=== PATIENT | male | born 1945 | race Caucasian/White ===

== ENCOUNTER → 2016-09-25 | Outpatient (CLI) | payer MEDICARE, OTHER ==
[~2016-09-25] MED LIST: ALLOPURINOL PO; AMLODIPINE PO; FUROSEMIDE PO; GABAPENTIN PO; LISINOPRIL PO; LUNESTA PO; METH5TAB2; MORPHINE PO; [UNRECOGNIZED DRUG - REMARK] PO
[2016-09-25 15:22] LABS: ASPARTATE AMINO TRANSFERASE 24 U/L (15-37); BLOOD UREA NITROGEN 21 mg/dL (7-18)
== END | disposition home or self-care (01) ==
LOC: STAR 13:54 → MERGE 13:54
PROVIDERS: ATTEND Neurological Surgery
DX: Z01.818 Encounter for other preprocedural examination (principal); M48.06 Spinal stenosis, lumbar region; R79.1 Abnormal coagulation profile
CPT/HCPCS: 36415; 71020; 80053; 85025; 85610; 85730; 93005

== ENCOUNTER 2016-10-09 09:53 | Inpatient (IN) | payer MEDICARE, OTHER ==
[~2016-10-09] VITALS: Ht 180.3 cm; Wt 117.8 kg
[2016-10-09] MEDS ORDERED: LACTATED RINGERS 1,000 ML IV SCH (10:26)
[2016-10-09 10:53] VITALS: BP 134/87
[2016-10-09] MEDS ORDERED: ASPI-496 PO (11:06)
[2016-10-09] MEDS ORDERED: FURO20TA3 PO (11:06)
[2016-10-09] MEDS ORDERED: ALLO300T PO (11:06)
[2016-10-09] MEDS ORDERED: DOCU240C53 PO (11:06)
[2016-10-09] MEDS ORDERED: TERA2CAP3 PO (11:06)
[2016-10-09] MEDS ORDERED: POLY17PO5 PO (11:06)
[2016-10-09] MEDS ORDERED: OXYC-223 PO (11:06)
[2016-10-09] MEDS ORDERED: GABA400C PO (11:06)
[2016-10-09] MEDS ORDERED: AMLO5TAB2 PO (11:06)
[2016-10-09] MEDS ORDERED: POTA20TA6 PO (11:06)
[2016-10-09] MEDS ORDERED: LISI-170 PO (11:06)
[2016-10-09] MEDS ORDERED: MORPHINE ER PO (11:06)
[2016-10-09] MEDS ORDERED: ESZO3TAB9 PO (11:06)
[2016-10-09] MEDS ORDERED: FENTANYL PF 250 MCG/5ML ONE (11:19)
[2016-10-09] MEDS ORDERED: MIDAZOLAM 1 MG/ML, 2ML ONE (11:19)
[2016-10-09] MEDS ORDERED: GLYCOPYRROLATE 0.2MG/1ML ONE (12:28)
[2016-10-09] MEDS ORDERED: ONDANSETRON 2MG/ML, 2ML ONE (12:28)
[2016-10-09] MEDS ORDERED: ROCURONIUM 10 MG/ML ONE (12:28)
[2016-10-09] MEDS ORDERED: SUCCINYLCHOLINE 20 MG/ML, 10ML ONE (12:28)
[2016-10-09] MEDS ORDERED: NEOSTIGMINE 1 MG/ML, 10ML ONE (12:28)
[2016-10-09] MEDS ORDERED: PROPOFOL 10 MG/ML, 20ML ONE (12:28)
[2016-10-09] MEDS ORDERED: DEXAMETHASONE 4 MG/ML, 1ML ONE (12:28)
[2016-10-09] MEDS ORDERED: CEFAZOLIN 1,000 MG ONE (12:28)
[2016-10-09] MEDS ORDERED: BACITRACIN 50,000 UNIT IRRIG ONE (13:18)
[2016-10-09] MEDS ORDERED: THROMBIN 5,000 UNIT VIAL TP ONE (13:19)
[2016-10-09] MEDS ORDERED: BUPIVACAINE/PF-EPI 0.5% 1:200K INFIL ONE (13:19)
[2016-10-09] MEDS ORDERED: ONDANSETRON 2MG/ML, 2ML IVPush PRN (13:30)
[2016-10-09] MEDS ORDERED: hydrALAzine 20 MG/ML, 1ML IV PRN (13:30)
[2016-10-09] MEDS ORDERED: METOPROLOL 1 MG/ML, 5ML IV PRN (13:30)
[2016-10-09] MEDS ORDERED: EPHEDRINE 50 MG/ML, 1ML IVPush PRN (13:30)
[2016-10-09] MEDS ORDERED: MEPERIDINE/PF 25MG/0.5ML IVPush PRN (13:30)
[2016-10-09] MEDS ORDERED: MIDAZOLAM 1 MG/ML, 2ML IV PRN (13:30)
[2016-10-09] MEDS ORDERED: ACETAMINOPHEN 325 MG TABLET PO PRN (13:30)
[2016-10-09] MEDS ORDERED: ALBUTEROL SULFATE 2.5 MG/3 ML NPPB PRN (13:30)
[2016-10-09] MEDS ORDERED: OXYcodone 5 MG/5 ML ORAL.SOL UDC PO PRN (13:30)
[2016-10-09] MEDS ORDERED: PROMETHAZINE 25 MG/ML, 1ML IV PRN (13:30)
[2016-10-09] MEDS ORDERED: LABETALOL 5MG/ML, 20ML IV PRN (13:30)
[2016-10-09] MEDS ORDERED: ACETAMINOPHEN 325 MG TABLET ONE (14:31)
[2016-10-09] MEDS ORDERED: FENTANYL PF 100 MCG/2ML ONE (14:31)
[2016-10-09] MEDS ORDERED: ACETAMINOPHEN 650 MG/20.3 ML UDC ONE (14:31)
[2016-10-09] MEDS ORDERED: OXYcodone 5 MG/5 ML ORAL.SOL UDC ONE (14:32)
[2016-10-09] MEDS: FENTANYL PF 100 MCG/2ML IV PRN ×2 (14:35→15:04)
[2016-10-09] MEDS ORDERED: HYDROmorphone 2 MG/ML, 1ML ONE (14:47)
[2016-10-09] MEDS: HYDROmorphone 1 MG/ML, 1ML IV PRN ×2 (14:50→15:00)
[2016-10-09] MEDS ORDERED: CEFAZOLIN PMX 1GM/50ML 50 ML IVPB SCH ×2 (16:30)
[2016-10-09] MEDS ORDERED: PROMETHAZINE 25 MG/ML, 1ML IM PRN (16:30)
[2016-10-09] MEDS ORDERED: DIPHENHYDRAMINE 50 MG/ML, 1ML IVPush PRN (16:30)
[2016-10-09] MEDS ORDERED: DIPHENHYDRAMINE 50 MG/ML, 1ML IM PRN (16:30)
[2016-10-09] MEDS ORDERED: MAGNESIUM HYDROXIDE 8%, 30ML UDC PO PRN (16:30)
[2016-10-09] MEDS ORDERED: HYDROmorphone 2MG TABLET PO PRN (16:30)
[2016-10-09] MEDS ORDERED: ONDANSETRON 2MG/ML, 2ML IV PRN (16:30)
[2016-10-09] MEDS ORDERED: DIPHENHYDRAMINE 50 MG CAPSULE PO PRN (16:30)
[2016-10-09] MEDS ORDERED: BISACODYL 10 MG SUPP PR PRN (16:30)
[2016-10-09] MEDS ORDERED: ZOLPIDEM 5MG TABLET PO PRN (21:00)
[2016-10-09] MEDS: LUNESTA 3 MG PO SCH (21:00)
[2016-10-09] MEDS: POLYETHYLENE GLYCOL 17 GM PACKET PO SCH (21:26)
[2016-10-09] MEDS: ALLOPURINOL 300 MG TABLET PO SCH (21:26)
[2016-10-09] MEDS: DOCUSATE CALCIUM 240 MG CAPSULE PO SCH (21:26)
[2016-10-09] MEDS: GABAPENTIN 400 MG CAPSULE PO SCH (21:26)
[2016-10-09] MEDS: TERAZOSIN 2MG CAPSULE PO SCH (21:26)
[2016-10-09] MEDS: NS + 20MEQ KCL 1,000 ML IV SCH (22:00)
[2016-10-09] MEDS: CEFAZOLIN PMX 1GM/50ML 50 ML IVPB SCH (22:22)
[2016-10-10 02:27] VITALS: BP 96/53
[2016-10-10 04:20] VITALS: BP 129/86
[2016-10-10] MEDS: CEFAZOLIN PMX 1GM/50ML 50 ML IVPB SCH (05:58)
[2016-10-10 06:36] VITALS: BP 133/74
[2016-10-10] MEDS ORDERED: POLYETHYLENE GLYCOL 17 GM PACKET PO SCH ×2 (09:00)
[2016-10-10] MEDS: FUROSEMIDE 20 MG TABLET PO SCH (09:19)
[2016-10-10] MEDS: POTASSIUM CHLORIDE 20 MEQ TAB.ER.PRT PO SCH (09:19)
[2016-10-10] MEDS: GABAPENTIN 400 MG CAPSULE PO SCH ×2 (09:20→22:40)
[2016-10-10] MEDS: DOCUSATE CALCIUM 240 MG CAPSULE PO SCH ×2 (09:20→22:40)
[2016-10-10] MEDS: LISINOPRIL 20 MG TABLET PO SCH (09:21)
[2016-10-10] MEDS: AMLODIPINE 5 MG TABLET PO SCH (09:21)
[2016-10-10] MEDS: POLYETHYLENE GLYCOL 17 GM PACKET PO SCH (09:22)
[2016-10-10] MEDS: METHOCARBAMOL 750 MG TABLET PO PRN (09:24)
[2016-10-10] MEDS: NS + 20MEQ KCL 1,000 ML IV SCH (12:30)
[2016-10-10 14:41] VITALS: BP 132/91
[2016-10-10] MEDS: HYDROmorphone 2 MG/ML, 1ML IM PRN (14:43)
[2016-10-10 20:00] VITALS: BP 135/74
[2016-10-10] MEDS: LUNESTA 3 MG PO SCH (21:00)
[2016-10-10] MEDS: ALLOPURINOL 300 MG TABLET PO SCH (21:00)
[2016-10-10] MEDS: TERAZOSIN 2MG CAPSULE PO SCH (22:40)
[2016-10-11] MEDS: OXYcodone/APAP 5/325MG TABLET PO PRN ×3 (00:35→16:16)
[2016-10-11] MEDS: METHOCARBAMOL 750 MG TABLET PO PRN ×3 (00:35→21:02)
[2016-10-11 02:00] VITALS: BP 131/74
[2016-10-11] MEDS: HYDROmorphone 2 MG/ML, 1ML IM PRN (02:41)
[2016-10-11 07:10] VITALS: BP 139/57
[2016-10-11 08:05] VITALS: BP 134/72
[2016-10-11] MEDS: NS + 20MEQ KCL 1,000 ML IV SCH ×2 (08:30→19:23)
[2016-10-11] MEDS: POTASSIUM CHLORIDE 20 MEQ TAB.ER.PRT PO SCH (08:44)
[2016-10-11] MEDS: LISINOPRIL 20 MG TABLET PO SCH (08:45)
[2016-10-11] MEDS: DOCUSATE CALCIUM 240 MG CAPSULE PO SCH ×2 (08:45→21:00)
[2016-10-11] MEDS: AMLODIPINE 5 MG TABLET PO SCH (08:45)
[2016-10-11] MEDS: FUROSEMIDE 20 MG TABLET PO SCH (08:45)
[2016-10-11] MEDS: GABAPENTIN 400 MG CAPSULE PO SCH ×2 (08:45→21:00)
[2016-10-11] MEDS: POLYETHYLENE GLYCOL 17 GM PACKET PO SCH (08:46)
[2016-10-11 13:35] VITALS: BP 126/78
[2016-10-11] MEDS ORDERED: DEXTROSE 4 GM TAB.CHEW PO PRN (19:00)
[2016-10-11] MEDS ORDERED: DEXTROSE 50%, 50ML SYRINGE IVPush PRN (19:00)
[2016-10-11] MEDS ORDERED: GLUCAGON 1 MG IM PRN (19:00)
[2016-10-11 20:00] VITALS: BP 120/74
[2016-10-11] MEDS: DEXAMETHASONE 4 MG/ML, 1ML IVPush SCH (20:59)
[2016-10-11] MEDS: TERAZOSIN 2MG CAPSULE PO SCH (21:00)
[2016-10-11] MEDS: ALLOPURINOL 300 MG TABLET PO SCH (21:00)
[2016-10-11] MEDS ORDERED: SODIUM CHLORIDE FLUSH 10ML SYR IVF SCH (21:00)
[2016-10-11] MEDS: SODIUM CHLORIDE FLUSH 10ML SYR IVF SCH (21:00)
[2016-10-11] MEDS: FAMOTIDINE 20 MG TABLET PO SCH (21:00)
[2016-10-11] MEDS: LUNESTA 3 MG PO SCH (21:02)
[2016-10-11] MEDS: INSULIN ASPART 100 UNITS/ML, PEN SQ-INSULIN SCH (21:55)
[2016-10-12 02:30] VITALS: BP 125/77
[2016-10-12] MEDS: DEXAMETHASONE 4 MG/ML, 1ML IVPush SCH ×2 (02:33→07:44)
[2016-10-12 07:27] VITALS: BP 131/64
[2016-10-12] MEDS: POTASSIUM CHLORIDE 20 MEQ TAB.ER.PRT PO SCH (07:44)
[2016-10-12] MEDS: INSULIN ASPART 100 UNITS/ML, PEN SQ-INSULIN SCH (07:44)
[2016-10-12] MEDS: LISINOPRIL 20 MG TABLET PO SCH (08:56)
[2016-10-12] MEDS: DOCUSATE CALCIUM 240 MG CAPSULE PO SCH (08:56)
[2016-10-12] MEDS: FUROSEMIDE 20 MG TABLET PO SCH (08:56)
[2016-10-12] MEDS: AMLODIPINE 5 MG TABLET PO SCH (08:56)
[2016-10-12] MEDS: GABAPENTIN 400 MG CAPSULE PO SCH (08:57)
[2016-10-12] MEDS: FAMOTIDINE 20 MG TABLET PO SCH (08:57)
[2016-10-12] MEDS: SODIUM CHLORIDE FLUSH 10ML SYR IVF SCH (08:58)
[2016-10-12] MEDS ORDERED: METH750T87 PO (09:36)
[2016-10-12] MEDS: POLYETHYLENE GLYCOL 17 GM PACKET PO SCH (10:00)
== END 2016-10-12 11:39 | disposition home or self-care (01) | DRG 520 ==
LOC: OUT 09:53 → 4NOR 16:07 → OUT 16:43 → DCLOUNGE 10-12 10:27
PROVIDERS: ADMIT Neurological Surgery; ATTEND Neurological Surgery
PROC: 0SB20ZZ Excision of Lumbar Vertebral Disc, Open Approach (ICD-10-PCS; 2016-10-09)
PROC: 01NB0ZZ Release Lumbar Nerve, Open Approach (ICD-10-PCS; principal; 2016-10-09 13:00)
DX: M48.06 Spinal stenosis, lumbar region (principal); I10 Essential (primary) hypertension; E11.9 Type 2 diabetes mellitus without complications; E66.01 Morbid (severe) obesity due to excess calories; Z68.36 Body mass index [BMI] 36.0-36.9, adult; Z79.82 Long term (current) use of aspirin; M81.0 Age-related osteoporosis without current pathological fracture; E78.00 Pure hypercholesterolemia, unspecified; Z82.49 Family history of ischemic heart disease and other diseases of the circulatory system; Z80.9 Family history of malignant neoplasm, unspecified; Z82.61 Family history of arthritis; M47.26 Other spondylosis with radiculopathy, lumbar region
CPT/HCPCS: 72100; 82962; J0690; J1100; J1170; J1815; J2250; J2405; J2704; J2710; J3010; J3490; J0330; J7120

== ENCOUNTER 2016-10-16 21:03 | Observation (INO) | payer MEDICARE, OTHER ==
[~2016-10-16] VITALS: Ht 180.3 cm; Wt 116.6 kg
[~2016-10-16 21:03] MED LIST changes: +ALLO300T PO; +AMLO5TAB2 PO; +ASPI-496 PO; +DOCU240C53 PO; +ESZO3TAB9 PO; +FURO20TA3 PO; +GABA400C PO; +LISI-170 PO; +METH750T87 PO; +MORPHINE ER PO; +OXYC-223 PO; +POLY17PO5 PO; +POTA20TA6 PO; +TERA2CAP3 PO
[2016-10-16] MEDS ORDERED: SODIUM CHLORIDE FLUSH 10ML SYR IVF ONE (23:00)
[2016-10-16 23:17] LABS: BLOOD UREA NITROGEN 27 mg/dL (7-18)
[2016-10-16 23:59] LABS: PATH.CAST-FLAG NOT PRESENT; SPERM-FLAG NOT PRESENT; SRC-FLAG NOT PRESENT; XTAL-FLAG NOT PRESENT; YLC-FLAG NOT PRESENT
[2016-10-17 01:13] VITALS: BP 165/98
[2016-10-17 01:14] VITALS: BP 165/98
[2016-10-17] MEDS ORDERED: ACETAMINOPHEN 325 MG TABLET PO PRN (01:30)
[2016-10-17] MEDS ORDERED: ENOXAPARIN 40 MG/0.4 ML SQ SCH (01:30)
[2016-10-17] MEDS ORDERED: ONDANSETRON 2MG/ML, 2ML IVPush PRN (01:30)
[2016-10-17] MEDS ORDERED: DOCUSATE 100 MG CAPSULE PO PRN (01:30)
[2016-10-17] MEDS ORDERED: POLYETHYLENE GLYCOL 17 GM PACKET NG ONE (01:30)
[2016-10-17] MEDS: SODIUM CHLORIDE 0.9% 1,000 ML IV SCH ×3 (02:11→21:16)
[2016-10-17] MEDS ORDERED: OXYcodone/APAP 7.5/325MG TABLET PO ONE (03:00)
[2016-10-17] MEDS: METHOCARBAMOL 750 MG TABLET PO PRN ×2 (05:07→11:53)
[2016-10-17 07:45] VITALS: BP 128/79
[2016-10-17] MEDS: OXYcodone/APAP 7.5/325MG TABLET PO SCH ×2 (09:56→21:00)
[2016-10-17] MEDS: POTASSIUM CHLORIDE 20 MEQ TAB.ER.PRT PO SCH (09:56)
[2016-10-17] MEDS: GABAPENTIN 400 MG CAPSULE PO SCH ×2 (09:56→21:04)
[2016-10-17] MEDS: DOCUSATE CALCIUM 240 MG CAPSULE PO SCH ×2 (09:56→21:05)
[2016-10-17] MEDS: AMLODIPINE 5 MG TABLET PO SCH (09:56)
[2016-10-17] MEDS: LISINOPRIL 20 MG TABLET PO SCH (09:56)
[2016-10-17] MEDS: POLYETHYLENE GLYCOL 17 GM PACKET PO SCH (09:58)
[2016-10-17 14:20] VITALS: BP 129/76
[2016-10-17] MEDS ORDERED: LUNESTA 3 MG HOMEMEDPO SCH (21:00)
[2016-10-17] MEDS ORDERED: TERAZOSIN 2MG CAPSULE PO SCH (21:00)
[2016-10-17] MEDS ORDERED: ZOLPIDEM 5MG TABLET PO SCH (21:00)
[2016-10-17] MEDS ORDERED: ALLOPURINOL 300 MG TABLET PO SCH (21:00)
[2016-10-17 21:12] VITALS: BP 132/78
[2016-10-18] MEDS: METHOCARBAMOL 750 MG TABLET PO PRN ×2 (02:26→08:57)
[2016-10-18 02:29] VITALS: BP 125/81
[2016-10-18 05:30] LABS: BLOOD UREA NITROGEN 20 mg/dL (7-18)
[2016-10-18 08:32] VITALS: BP 133/76
[2016-10-18] MEDS: POLYETHYLENE GLYCOL 17 GM PACKET PO SCH (08:51)
[2016-10-18] MEDS: AMLODIPINE 5 MG TABLET PO SCH (08:51)
[2016-10-18] MEDS: GABAPENTIN 400 MG CAPSULE PO SCH (08:51)
[2016-10-18] MEDS: LISINOPRIL 20 MG TABLET PO SCH (08:51)
[2016-10-18] MEDS: DOCUSATE CALCIUM 240 MG CAPSULE PO SCH (08:52)
[2016-10-18] MEDS: POTASSIUM CHLORIDE 20 MEQ TAB.ER.PRT PO SCH (08:52)
[2016-10-18] MEDS: OXYcodone/APAP 7.5/325MG TABLET PO SCH (09:00)
[2016-10-18] MEDS ORDERED: TAMSULOSIN 0.4 MG CAP.ER.24H PO SCH (09:30)
[2016-10-18] MEDS ORDERED: TAMS-11 PO ×2 (09:49→09:52)
[2016-10-18 13:22] VITALS: BP 120/75
== END 2016-10-18 13:30 | disposition home or self-care (01) ==
LOC: ED 22:51 → EDIP 10-17 00:08 → INTOOBSV 10-17 00:08 → 4NOR 10-17 00:45
PROVIDERS: ADMIT Hospitalist; ATTEND Hospitalist
DX: R33.0 Drug induced retention of urine (principal); N40.1 Benign prostatic hyperplasia with lower urinary tract symptoms; K59.00 Constipation, unspecified; R53.1 Weakness; I10 Essential (primary) hypertension; E66.9 Obesity, unspecified; M10.9 Gout, unspecified; D72.829 Elevated white blood cell count, unspecified; G89.29 Other chronic pain; M54.5 Low back pain; F32.9 Major depressive disorder, single episode, unspecified; G62.9 Polyneuropathy, unspecified
CPT/HCPCS: 36415; 74020; 80048; 81001; 82040; 85014; 85018; 85025; 96360; 96361; 99285; G0378; J7030; J7509

== ENCOUNTER 2016-10-21 22:33 | Emergency (ER) | payer MEDICARE, OTHER ==
[~2016-10-21] VITALS: Ht 180.3 cm; Wt 114.1 kg
[~2016-10-21 22:33] MED LIST changes: +TAMS-11 PO
[2016-10-22 01:02] VITALS: BP 115/63
== END 2016-10-22 01:28 | disposition home or self-care (01) ==
LOC: ED 22:55
DX: N40.1 Benign prostatic hyperplasia with lower urinary tract symptoms (principal); R33.8 Other retention of urine; R10.30 Lower abdominal pain, unspecified; I10 Essential (primary) hypertension
CPT/HCPCS: 81001; 87086; 93005

== ENCOUNTER 2016-10-29 17:39 | Emergency (ER) | payer MEDICARE, OTHER ==
[~2016-10-29] VITALS: Ht 180.3 cm; Wt 117.1 kg
[2016-10-29 20:20] VITALS: BP 124/72
== END 2016-10-29 20:22 | disposition home or self-care (01) ==
LOC: ED 20:09
DX: R33.9 Retention of urine, unspecified (principal); I10 Essential (primary) hypertension; E66.9 Obesity, unspecified; N40.0 Benign prostatic hyperplasia without lower urinary tract symptoms
CPT/HCPCS: 51702

== ENCOUNTER 2016-11-04 02:22 | Emergency (ER) | payer MEDICARE, OTHER ==
[~2016-11-04] VITALS: Ht 180.3 cm; Wt 120.0 kg
[2016-11-04 04:02] VITALS: BP 113/81
== END 2016-11-04 04:05 | disposition home or self-care (01) ==
LOC: ED 02:54
DX: R33.9 Retention of urine, unspecified (principal); E11.9 Type 2 diabetes mellitus without complications; I10 Essential (primary) hypertension
CPT/HCPCS: 51702; 81001; 99284

== ENCOUNTER 2016-11-12 01:28 | Emergency (ER) | payer MEDICARE, OTHER ==
[~2016-11-12] VITALS: Ht 180.3 cm; Wt 118.9 kg
[2016-11-12 01:29] VITALS: BP 143/80
== END 2016-11-12 03:13 | disposition home or self-care (01) ==
LOC: ED 03:00
DX: R31.0 Gross hematuria (principal); R33.9 Retention of urine, unspecified
CPT/HCPCS: 99284

== ENCOUNTER 2016-11-29 12:08 | Inpatient (IN) | payer MEDICARE, OTHER ==
[~2016-11-29] VITALS: Ht 180.3 cm; Wt 118.0 kg
[2016-11-29] MEDS ORDERED: CEFTRIAXONE PMX 1GM/50ML 50 ML IVPB ONE (16:00)
[2016-11-29] MEDS ORDERED: CEFTRIAXONE PMX 1GM/50ML 50 ML ONE (16:10)
[2016-11-29 16:20] LABS: BLOOD UREA NITROGEN 12 mg/dL (7-18)
[2016-11-29] MEDS ORDERED: PHENAZOPYRIDINE 200 MG TABLET ONE (16:49)
[2016-11-29] MEDS ORDERED: PHENAZOPYRIDINE 200 MG TABLET PO ONE (17:00)
[2016-11-29] MEDS ORDERED: SODIUM CHLORIDE FLUSH 10ML SYR IVF PRN (17:00)
[2016-11-29] MEDS ORDERED: hydrALAzine 20 MG/ML, 1ML IVPush PRN (17:30)
[2016-11-29] MEDS ORDERED: ACETAMINOPHEN 325 MG TABLET PO PRN ×2 (17:30→19:30)
[2016-11-29] MEDS ORDERED: OXYcodone IR 5MG TABLET PO PRN (17:30)
[2016-11-29] MEDS: CEFTRIAXONE PMX 1GM/50ML 50 ML IV SCH (17:30)
[2016-11-29] MEDS ORDERED: ONDANSETRON 2MG/ML, 2ML IVPush PRN (17:30)
[2016-11-29] MEDS ORDERED: POLYETHYLENE GLYCOL 17 GM PACKET PO PRN (17:30)
[2016-11-29] MEDS ORDERED: METHOCARBAMOL 750 MG TABLET PO PRN (17:30)
[2016-11-29] MEDS ORDERED: BISACODYL 10 MG SUPP PR PRN ×2 (17:30→19:30)
[2016-11-29] MEDS ORDERED: ENALAPRILAT 1.25 MG/ML, 2ML IVPush PRN ×2 (17:30→18:26)
[2016-11-29] MEDS: morphine SULFATE 10 MG/ML, 1ML IVPush PRN ×2 (18:35→21:28)
[2016-11-29] MEDS: SODIUM CHLORIDE 0.9% 1,000 ML IV SCH (18:37)
[2016-11-29] MEDS: HEPARIN 5,000 UNITS/ML, 1ML SQ SCH (18:44)
[2016-11-29 19:50] VITALS: BP 146/88
[2016-11-29] MEDS ORDERED: ZOLPIDEM 5MG TABLET PO SCH (21:00)
[2016-11-29] MEDS: PHENAZOPYRIDINE 200 MG TABLET PO SCH (21:26)
[2016-11-29] MEDS: GABAPENTIN 400 MG CAPSULE PO SCH (21:26)
[2016-11-29] MEDS: ALLOPURINOL 300 MG TABLET PO SCH (21:26)
[2016-11-29] MEDS: OXYcodone/APAP 7.5/325MG TABLET PO SCH (21:26)
[2016-11-29] MEDS: TERAZOSIN 2MG CAPSULE PO SCH (21:26)
[2016-11-30] MEDS: HEPARIN 5,000 UNITS/ML, 1ML SQ SCH ×3 (01:10→18:18)
[2016-11-30 01:13] VITALS: BP 105/61
[2016-11-30] MEDS: morphine SULFATE 10 MG/ML, 1ML IVPush PRN ×2 (01:16→16:20)
[2016-11-30] MEDS: SODIUM CHLORIDE 0.9% 1,000 ML IV SCH (02:46)
[2016-11-30 05:20] LABS: BLOOD UREA NITROGEN 14 mg/dL (7-18)
[2016-11-30 05:25] LABS: ASPARTATE AMINO TRANSFERASE 12 U/L (15-37)
[2016-11-30] MEDS: CEFTRIAXONE PMX 1GM/50ML 50 ML IV SCH ×2 (05:29→18:19)
[2016-11-30 08:00] VITALS: BP 137/84
[2016-11-30] MEDS: TAMSULOSIN 0.4 MG CAP.ER.24H PO SCH (09:10)
[2016-11-30] MEDS: AMLODIPINE 5 MG TABLET PO SCH (09:11)
[2016-11-30] MEDS: GABAPENTIN 400 MG CAPSULE PO SCH ×2 (09:11→19:58)
[2016-11-30] MEDS: PHENAZOPYRIDINE 200 MG TABLET PO SCH ×3 (09:12→19:58)
[2016-11-30] MEDS: LISINOPRIL 20 MG TABLET PO SCH (09:12)
[2016-11-30] MEDS: SENNA/DOCUSATE TABLET PO SCH (09:13)
[2016-11-30] MEDS: POLYETHYLENE GLYCOL 17 GM PACKET PO PRN (09:20)
[2016-11-30] MEDS: OXYcodone/APAP 7.5/325MG TABLET PO SCH ×2 (11:07→21:12)
[2016-11-30 14:00] VITALS: BP 134/81
[2016-11-30 19:50] VITALS: BP 130/82
[2016-11-30] MEDS: ALLOPURINOL 300 MG TABLET PO SCH (19:58)
[2016-11-30] MEDS: TERAZOSIN 2MG CAPSULE PO SCH (19:59)
[2016-11-30] MEDS ORDERED: ZOLPIDEM 5MG TABLET PO PRN (23:30)
[2016-12-01] MEDS: HEPARIN 5,000 UNITS/ML, 1ML SQ SCH ×2 (01:30→09:30)
[2016-12-01 04:30] VITALS: BP 146/82
[2016-12-01] MEDS: CEFTRIAXONE PMX 1GM/50ML 50 ML IV SCH (04:53)
[2016-12-01 08:00] VITALS: BP 189/72
[2016-12-01] MEDS: SENNA/DOCUSATE TABLET PO SCH (09:35)
[2016-12-01] MEDS: POLYETHYLENE GLYCOL 17 GM PACKET PO PRN (09:35)
[2016-12-01] MEDS: OXYcodone/APAP 7.5/325MG TABLET PO SCH (09:35)
[2016-12-01] MEDS: LISINOPRIL 20 MG TABLET PO SCH (09:36)
[2016-12-01] MEDS: GABAPENTIN 400 MG CAPSULE PO SCH (09:36)
[2016-12-01] MEDS: TAMSULOSIN 0.4 MG CAP.ER.24H PO SCH (09:36)
[2016-12-01] MEDS: AMLODIPINE 5 MG TABLET PO SCH (09:36)
[2016-12-01] MEDS: PHENAZOPYRIDINE 200 MG TABLET PO SCH (09:36)
[2016-12-01] MEDS ORDERED: CEFD300C37 PO (10:35)
== END 2016-12-01 13:45 | disposition home or self-care (01) | DRG 699 ==
LOC: ED 13:38 → EDIP 16:34 → 3NE 18:12
PROVIDERS: ADMIT Hospitalist; ATTEND Hospitalist
PROC: 0T9B70Z Drainage of Bladder with Drainage Device, Via Natural or Artificial Opening (ICD-10-PCS; principal; 2016-11-29)
DX: T83.091A Other mechanical complication of indwelling urethral catheter, initial encounter (principal); N10 Acute pyelonephritis; F32.9 Major depressive disorder, single episode, unspecified; E11.40 Type 2 diabetes mellitus with diabetic neuropathy, unspecified; G89.29 Other chronic pain; I10 Essential (primary) hypertension; M10.9 Gout, unspecified; K59.00 Constipation, unspecified; E66.9 Obesity, unspecified; R33.8 Other retention of urine; N40.1 Benign prostatic hyperplasia with lower urinary tract symptoms; Y73.8 Miscellaneous gastroenterology and urology devices associated with adverse incidents, not elsewhere classified; M48.06 Spinal stenosis, lumbar region; Z79.891 Long term (current) use of opiate analgesic; Z68.36 Body mass index [BMI] 36.0-36.9, adult; Z79.899 Other long term (current) drug therapy; Z83.3 Family history of diabetes mellitus
CPT/HCPCS: 36415; 51702; 80048; 80053; 80061; 81001; 82040; 83036; 83605; 83735; 84439; 84443; 85025; 87040; 87077; 87086; 87186; 96365; J0696; J1644; J2270; J7030

== ENCOUNTER → 2017-01-07 | Outpatient (CLI) | payer MEDICARE, OTHER ==
[~2017-01-07] MED LIST changes: +CEFD300C37 PO; +FENTANYL PF 100 MCG/2ML ONE; +GADOBUTROL 10 MMOL/10 ML PFS ONE; +MIDAZOLAM 1 MG/ML, 5ML ONE; +NALOXONE 1 MG/ML, 2ML ONE
== END | disposition home or self-care (01) ==
LOC: RAD 09:01
PROVIDERS: ATTEND Nurse Practitioner Primary Care
DX: M47.897 Other spondylosis, lumbosacral region (principal); M47.896 Other spondylosis, lumbar region; M48.06 Spinal stenosis, lumbar region; M48.07 Spinal stenosis, lumbosacral region; M54.16 Radiculopathy, lumbar region; M17.0 Bilateral primary osteoarthritis of knee; I10 Essential (primary) hypertension; E78.00 Pure hypercholesterolemia, unspecified; M81.0 Age-related osteoporosis without current pathological fracture; E11.9 Type 2 diabetes mellitus without complications; Z98.890 Other specified postprocedural states
CPT/HCPCS: 72158; 99156; 99157; A9585; J2250; J3010; J2310

== ENCOUNTER 2020-05-01 14:37 | Emergency (ER) | payer MEDICARE, OTHER ==
[~2020-05-01] VITALS: Ht 177.8 cm; Wt 120.3 kg
[~2020-05-01 14:37] MED LIST changes: +AMLO-150 PO; -AMLO5TAB2 PO; +ESZO3TAB28 PO; -ESZO3TAB9 PO; -FENTANYL PF 100 MCG/2ML ONE; -GADOBUTROL 10 MMOL/10 ML PFS ONE; -MIDAZOLAM 1 MG/ML, 5ML ONE; -NALOXONE 1 MG/ML, 2ML ONE; -OXYC-223 PO; +OXYC-306 PO
--- NOTE | 2020-05-01 14:48 | NUR ---
PT ABLE TO SPEAK IN COMPLETE SENTENCES, RAPIDLY, WITHOUT DIFFICULTY. DENIES DYSPNEA, SOB. NO FACIAL DROP, ABLE TO MOVE ALL EXTREMETIES W/OUT DIFFICULTY. PT REPORTS STARTING NEW MED LAST WEDNESDAY. REPORTS FEELING TINGLING IN MOUTH, LIP FEELS FAT, NUMBNESS TO LT SIDE OF MOUTH, DIZZY. STATES HE WAS USING OPIATES REGULARLY FOR CHRONIC PAIN AND WAS SWITCHED TO THE NEW MEDICATION; PT UNABLE TO RECALL EXACT NAME OF MED.
[2020-05-01] MEDS ORDERED: BUPR2TAB SL (14:53)
--- NOTE | 2020-05-01 15:05 | NUR ---
EXTERNAL RX LIST ACCESS FOR CORRECT MEDICATION NAME: BUPRENORPHINE. PROVIDERS WILL BE NOTIFIED.
[2020-05-01] MEDS ORDERED: METO25TA4 PO (15:21)
[2020-05-01] MEDS ORDERED: METH500T7 PO (15:21)
[2020-05-01] MEDS ORDERED: AMIT50TA PO (15:21)
[2020-05-01] MEDS ORDERED: ROSU5TAB12 PO (15:21)
[2020-05-01] MEDS ORDERED: ALOG25TA2 PO (15:21)
[2020-05-01 15:23] LABS: BASOPHILS % (AUTO) 2 % (0-1); EOSINOPHILS % (AUTO) 2 % (1-7); LYMPHOCYTES % (AUTO) 13 % (22-44); MEAN CORPUSCULAR HEMOGLOBIN 29.9 pg (27.5-34.5); MEAN CORPUSCULAR HGB CONC 33.7 g/dL (33.2-36.2); MEAN PLATELET VOLUME 8.2 fL (7.4-10.4); MONOCYTES % (AUTO) 10 % (2-9); NEUTROPHILS % (AUTO) 73 % (42-75); PLATELET COUNT 258 x10^3/uL (130-400); RED BLOOD COUNT 4.81 x10^6/uL (4.38-5.82); RED CELL DISTRIBUTION WIDTH 13.4 % (9.4-14.8)
--- NOTE | 2020-05-01 15:31 | NUR ---
ABLE TO STAND AT BS TO VOID. NO DIZZINESS W/ POSITION CHANGE.
[2020-05-01 15:35] LABS: ALANINE AMINOTRANSFERASE 48 U/L (12-78); ANION GAP 4 mmol/L (5-15); CALCIUM 8.7 mg/dL (8.5-10.1); CHLORIDE 102 mmol/L (98-107)
[2020-05-01 15:38] LABS: ALKALINE PHOSPHATASE 62 U/L (45-117); BILIRUBIN,TOTAL 0.6 mg/dL (0.2-1.0); TOTAL PROTEIN 7.1 g/dL (6.4-8.2)
[2020-05-01 15:46] LABS: MICROSCOPIC NOT IND
[2020-05-01 15:48] LABS: MD NO
[2020-05-01] MEDS ORDERED: ASPI81TA45 PO (15:50)
[2020-05-01] MEDS ORDERED: DOXE6TAB4 PO (15:50)
[2020-05-01] MEDS ORDERED: GABA300T2 PO (15:50)
[2020-05-01 16:04] VITALS: BP 124/66
--- NOTE | 2020-05-01 16:08 | NUR ---
SITTING ON GURNEY; NO COMPLAINTS. MONITORING CONTINUING: NSR.
--- NOTE | 2020-05-01 16:08 | NUR ---
SPOUSE: SELIN ROSADO [phone]. DAUGHER: JIMY MORE [phone].
--- NOTE | 2020-05-01 16:12 | NUR ---
CALLED SPOUSE TO NOTIFY HER OF PT'S PENDING DC AND TO ARRANGE TRANSPORT HOME. SHE & DAUGHTER WILL DRIVE OVER, FROM [place].
== END 2020-05-01 16:28 | disposition home or self-care (01) ==
LOC: ED 16:15
DX: R20.2 Paresthesia of skin (principal); T50.7X5A Adverse effect of analeptics and opioid receptor antagonists, initial encounter; E11.9 Type 2 diabetes mellitus without complications; R94.31 Abnormal electrocardiogram [ECG] [EKG]; M10.9 Gout, unspecified; I10 Essential (primary) hypertension; Y92.89 Other specified places as the place of occurrence of the external cause
CPT/HCPCS: 36415; 80053; 81003; 85025; 93005; 99284

== ENCOUNTER 2021-02-10 08:30 | Emergency (ER) | payer MEDICARE, OTHER ==
[~2021-02-10] VITALS: Ht 177.8 cm; Wt 118.0 kg
[~2021-02-10 08:30] MED LIST changes: +ALOG25TA2 PO; +AMIT50TA PO; +ASPI81TA45 PO; +BUPR2TAB SL; +DOXE6TAB4 PO; +GABA300T2 PO; +METH-639 PO; +METH-648; -METH5TAB2; +METO25TA4 PO; -OXYC-306 PO; +OXYC1TAB16 PO; +POTA-143 PO; -POTA20TA6 PO; +ROSU5TAB12 PO
--- NOTE | 2021-02-10 08:30 | NUR ---
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
--- NOTE | 2021-02-10 10:08 | NUR ---
Break Relief: No needs at this time; u/s in progress
[2021-02-10 11:00] VITALS: BP 125/60
--- NOTE | 2021-02-10 11:00 | NUR ---
PT REMAINS UPRIGHT ON GURNEY AWAKE & COMFORTABLE AT REST, RESPONDS APPROP TO STAFF, NAD, NO NEEDS AT THIS TIME, CALL LIGHT WITHIN REACH. AWAITING FOOD TRAY & TRANSPORT HOME VIA [facility] @ 1300.
--- NOTE | 2021-02-10 12:04 | NUR ---
PT UPRIGHT ON GURNEY AWAKE & COMFORTABLE AT REST, WATCHING TV, RESPONDS APPROP TO STAFF, NAD, LUNCH TRAY GIVEN- OTHER COMFORT MEASURES PROVIDED, CALL LIGHT WITHIN REACH. AWAITING TRANSPORT HOME VIA [facility] @ 1300.
--- NOTE | 2021-02-10 12:53 | NUR ---
Patient given discharge instructions and they have confirmed that they understand the instructions. NAD, all questions answered appropriately, denies additional needs at this time. No personal belongings left in room after discharge.
== END 2021-02-10 12:54 | disposition home or self-care (01) ==
LOC: ED 09:00
DX: N43.2 Other hydrocele (principal); I10 Essential (primary) hypertension; E11.9 Type 2 diabetes mellitus without complications
CPT/HCPCS: 76870; 99284